=== PATIENT | female | born 1960 | race Caucasian/White ===

== ENCOUNTER → 2017-10-05 | Outpatient (CLI) | payer OTHER, BC ==
[~2017-10-05] MED LIST: ADVAIR 250/501 DISK IH; AZO BLADDER CO300 MG PO; Ambien PO; Coumadin Protocol PO; FLONASE16 G1 BOTH NARES; Feosol PO; GABAPENTIN800 MG PO; HUMALOG KW200 UNIT/1 SC; JANUMET XR 1001 EACH PO; Kenalog 0.1% Cream TP; LIDODERM 5% P1 PATCH TD; LOTREL 5/201 CAPSULE PO; Levothroid,Synthroid PO; Lotrel 5/20 PO; MAGNESIUM250 MG PO; METHOCARBAMOL750 MG PO; MOBIC7.5 MG PO; NEXIUM40 MG PO; Neurontin PO; OXYCODONE HCL10 MG PO; OXYCONTIN20 MG PO; OXYCONTIN30 MG PO; OxyCONTIN PO; PROAIR HFA8.5 GM IH; Proventil,Ventolin H IH; SINGULAIR10 MG PO; SYNTHROID100 MCG PO; Singulair PO; VICTOZA 2-0.6 MG/0.1 SC; Victoza SC; ZANAFLEX4 MG PO; ZYRTEC10 M3 PO; ZYRTEC5 MG PO; Zofran IV; oxyCODONE PO
== END | disposition home or self-care (01) ==
LOC: RAD 08-17 14:00
PROC: 3E0R3KZ Introduction of Other Diagnostic Substance into Spinal Canal, Percutaneous Approach (ICD-10-PCS; principal; 2017-10-05)
DX: M43.16 Spondylolisthesis, lumbar region (principal); T84.038A Mechanical loosening of other internal prosthetic joint, initial encounter; M25.78 Osteophyte, vertebrae; M48.05 Spinal stenosis, thoracolumbar region; M89.38 Hypertrophy of bone, other site; M47.896 Other spondylosis, lumbar region; Z96.89 Presence of other specified functional implants; Z98.1 Arthrodesis status; R93.7 Abnormal findings on diagnostic imaging of other parts of musculoskeletal system
CPT/HCPCS: 62304; 72100; 72132